=== PATIENT | female | born 1995 ===

== ENCOUNTER 2025-02-07 14:32 | Outpatient (AMB) | payer MEDICAID, SELFPAY ==
[2025-02-07 14:41] VITALS: BP 100/74; PULSE 93; O2SAT 95; BMI 38.9
--- NOTE | 2025-02-07 14:41 | A.OFFVIS_ITS ---
Vital Signs 02/07/25 14:41 Height 5 ft 4 in Weight 226 lb 10.163 oz BMI 38.9 BP 100/74 Blood Pressure Location Lt brachial Position Sitting Pulse 93 Pulse Source Pulse Oximeter Pulse Oximetry (%) 95 Oxygen Delivery Method Room Air Intake Visit Reasons: Obesity Intake Note: New patient externally referred by PCP for Obesity. Gis Developer Required: No Accompanied by: Self / Same As Patient Allergies No Known Allergies Allergy (Verified 02/07/25 14:42) Medication List - Last Reconciled 02/07/25 by Abhay Gutierrez MD No Known Home Meds HPI Comments Details: The patient is a 29-year-old female presenting with weight management concerns and associated endocrine symptoms. 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 She has switched to day shifts and is attempting to regulate her nervous system and stress levels. The patient reports hirsutism, with significant hair growth on her chin and thinning hair on the scalp. She denies any diagnosis of polycystic ovarian syndrome (PCOS) but has experienced ovarian cysts in the past. Her menstrual cycles are regular but significantly heavier than before, and she experiences easy bruising and purplish stretch toure post-. The patient has not been on any thyroid medication and prefers to avoid medication if possible. She has had recent labs done, but they did not include thyroid levels, which were normal in the past. Her A1c was noted to be 6%, indicating borderline prediabetes. The patient has a family history of type 2 diabetes and has monitored her blood glucose levels, which were stable. She reports being very thirsty and acknowledges poor dietary habits, including eating once late at night. She has not tried any weight loss medications or seen a confidential secretary. - No history of thyroid medication use - No history of weight loss medication use [facility] Medical History (Updated 02/07/25 @ 14:46 by Abhay Gutierrez MD) Obesity Surgical History No pertinent past surgical history Family History Mother Type 2 diabetes mellitus Social History Alcohol intake: current Patient Tobacco Use Status: Never used Tobacco Physical Exam Vital Signs: Last Vital Signs Pulse 93 02/07/25 14:41 BP 100/74 02/07/25 14:41 Pulse Ox 95 02/07/25 14:41 Oxygen Delivery Method Room Air 02/07/25 14:41 BMI result Body Mass Index 38.9 Const Other: No cushingoid features. Thyroid gland is normal size weighs about 15 g. There are no thyroid nodules palpated. Absence of acanthosis nigricans. Hair growth present on the chin and in the sideburn region Assessment & Plan Assessment & Plan (1) Obesity: Code(s): E66.9 - Obesity, unspecified Category: Medical Plan: This is a 29-year-old female with a history of obesity. No clear underlying endocrine cause but rule out thyroid disorder. Plan is to check TSH and free T4. Will refer to confidential secretary 1. Hirsutism The patient reports significant hair growth on the chin and thinning hair on the scalp. A workup for polycystic ovarian syndrome PCOS) is planned, including checking testosterone and DHEAS levels , 17 OHP. prolactin Spironolactone was discussed as a potential treatment, but the patient is not currently on any medication. 2. Polycystic Ovarian Syndrome PCOS) The patient has not been formally diagnosed with PCOS but has a history of ova cassi cysts. A comprehensive workup is planned, including checking testosterone, DHEAS, and 17-hydroxyprogesterone levels to rule out other conditions such as congenital adrenal hyperplasia CAH). 3. Insulin Resistance The patient has an A1c of 6%, indicating borderline prediabetes. Lifestyle modifications, including dietary changes and weight management, were discussed. The potential use of metformin was mentioned as a treatment option for insulin resistance associated with PCOS. 4. Hyperprolactinemia The patient reports nipple discharge, and a prolactin level check is planned to rule out hyperprolactinemia. The possibility of a pituitary gland issue was discussed if prolactin levels are elevated. 5. Congenital Adrenal Hyperplasia CAH) Although unlikely, CAH is considered in the differential diagnosis due to the patient's symptoms. A 17-hydroxyprogesterone level will be checked to rule out this condition. 6. Dubberly Syndrome The patient does not exhibit signs of Dubberly syndrome, but it remains a consideration due to the presence of purplish stretch toure and other symptoms. Further evaluation may be warranted if symptoms persist. During the consultation, I discussed the patient's symptoms and potential diagnoses, including hirsutism, PCOS, insulin resistance, hyperprolactinemia, CAH, and Dubberly syndrome. We reviewed the importance of a comprehensive workup, including hormone level checks and lifestyle modifications. I explained the potential use of medications like spironolactone and metformin, emphasizing the need for careful monitoring and follow-up. We also discussed the risks and benefits of these treatments, and I provided information on resources for further education. A follow-up appointment was scheduled to review lab results and discuss further management options. - Schedule and complete fasting lab tests in the morning, including hormone levels. - Consider lifestyle modifications, including dietary changes and stress management. - Follow up with a confidential secretary for dietary guidance. - Return for a follow-up appointment in three to four months to review lab results and discuss further management. . The patient had an opportunity to ask questions regarding treatment plan. The patient expressed understanding and agreement with the above treatment plan. Patient was informed and verbally consented to the use of an ambient scribe for clinic note documentation during this visit. Orders: Orders Free T4 (Free Thyroxine) Today E66.9 - Obesity, unspecified Thyroid Stimulating Hormone Today E66.9 - Obesity, unspecified Prolactin Today E66.9 - Obesity, unspecified DHEA Sulfate Today E66.9 - Obesity, unspecified Testosterone, Free/Total Today E66.9 - Obesity, unspecified 17 Hydroxyprogesterone Today E66.9 - Obesity, unspecified Referrals Nutrition/Dietitian Referral E66.9 - Obesity, unspecified Coding Level of Care Code New Pt Level 4 (08685) Diagnoses Obesity E66.9
--- OUTSIDE RECORDS SUMMARY | 2025-02-07 15:39 | XMS_ITS | Continuity of Care Document ---
Author Organization [facility] Address [address] [place] [address] Insurance Providers Payer Plan Claims Address Claims Phone Policy Number Group Number Relation Employer Guarantor Name Guarantor Guarantor Address Guarantor Phone [facility] [employer] [place] [address] [address] tel: [id number] Problems Condition ICD9 code ICD10 code SNOMED code Start Date End Date S tatus Encounter for screening for other metabolic disorders Z13.228 Results No Results Allergies, adverse reactions, alerts No known allergies and adverse reactions Medications No administered medications reported Vital Signs No vital signs reported Social History No smoking Hx information available
--- OUTSIDE RECORDS SUMMARY | 2025-02-07 15:39 | XMS_ITS | Clinical Summary ---
Author Organization [place] [address] [address] [facility] Address [address] [place], [place] [address] [address] Phone Care Team Providers Care Tele Tech Name Role Phone Franci Anna MD Primary Care Provider Allergies Active Allergy Reactions Criticality Noted Date Comments Adhesive Tape-Silicones Other Low 07/26/2019 Skin irritation Pollen Extracts 02/29/2016 Runny nose , itchy throat , cough Medications EPINEPHrine (EPIPEN) 0.3 mg/0.3 mL injectionIndicat ions:Allergy, sequela Inject 0.3 mL (0.3 mg total) into the thigh 1 (one) time for 1 dose. 1 each 12/09/2024 Active Hospital, Clinic, or Other Facility Administered Medication Ordered Dose Route Frequency Start Date End Date Status lidocaine (PF) (XYLOCAINE-MPF) 1 % injection 0.5 mLIndications:Planta r fascial fibromatosis .5 mL inj Once PRN Procedure 01/24/2025 01/24/2025 Ended lidocaine (PF) (XYLOCAINE-MPF) 1 % injection 0.5 mLIndications:Planta r fascial fibromatosis .5 mL inj Once PRN Procedure 01/24/2025 01/24/2025 Ended triamcinolone acetonide (KENALOG-40) 40 mg/mL injection 20 mgIndications:Planta r fascial fibromatosis 20 mg IAtc Once PRN Procedure 01/24/2025 01/24/2025 Ended triamcinolone acetonide (KENALOG-40) 40 mg/mL injection 20 mgIndications:Planta r fascial fibromatosis 20 mg IAtc Once PRN Procedure 01/24/2025 01/24/2025 Ended Active Problems Problem Noted Date Diagnosed Date Migraines 12/08/2024 Overview (12/08/2024): with aura Obesity (BMI 30.0-34.9) 09/20/2020 Snoring 04/28/2017 Overview (12/08/2024): 04/2017 Home Sleep Study did not reveal sleep apnea. Allergic rhinitis 04/03/2014 Overview (12/08/2024): Immunotherapy; sees ENT Encounters Date Type Department Care Team Description 01/24/2025 8:45 AM EDT Consult Orthopedic Surgery - [facility] [address] [place] [address] [place] [phone] Gus Carbajal, DPM Plantar fascial fibromatosis (Primary Dx); Foot pain, bilateral; Equinus contracture of ankle 12/09/2024 1:45 PM EDT - 12/09/2024 11:59 PM EDT [facility] [phone] Foot pain, bilateral Discharge Disposition: Home or Self Care 12/09/2024 1:00 PM EDT Office Visit Internal Medicine - [address] [phone] Yifan Sheriff NP Morbid obesity (CMS/HCC V24, CMS/HCC V28) (Primary Dx); Abnormal facial hair; Work-related condition; Screening for diabetes mellitus; Family history of diabetes mellitus; Allergy, sequela; Nausea; Skin lesion; Foot pain, bilateral; Screening, anemia, deficiency, iron; Screening for thyroid disorder 11/15/2024 Telephone Internal Medicine - [address] [phone] Franci Anna MD Thyroid Problem from Last 3 Months Immunizations Name Administration Dates Next Due DTaP (Infanrix) 6wks to less than 7yo ,11/04/1995,1994,06/23,1994 [id number] (Pentacel) 2mo to less than 5yo 06/17/1995,1994,1994,04/21 HPV, Quadrivalent 05/02/2019,12/30/2012,06/10/20 12 Hepatitis B (Woevicm-K-Hsfgu , Recombivax HB-Adult) 19yo and older 12/04/2022,11/03/2022,05/20/2017,12/19,1994,1994 Hepatitis B Pediatric (Enger ix B; Recombivax HB) to less than 20 yo 05/02/2019 Influenza Quadravalent, MDCK , 0.5ml, with preservative (Flucelvax) 6mo and older 05/30/2020,05/20/2017 Influenza trivalent, 0.5mL, preservative free (Fluarix; FluLaval; Fluzone) ages 6mo and older (Afluria) 3 years and older 04/24/2024 Influenza trivalent, with pr eservative (Fluzone; Afluria) 6mo and older 04/07/2016,06/10/2012 Influenza, Unspecified 04/24/2024,06/22/2023 MMR, measles mumps and rubel la Live (Priorix; M-M-R II) 12mo and older 02/26/2000,06/17/1995 MMRV, measles mumps rubella and varicella live (Proquad) 4yo to less than 7yo 05/02/2019,02/26/2000,06/17/1995 Meningococcal MCV4P 04/19/2010 OPV 02/27/1999, 5,1994,04/21 PPD Test 10/03/2015 Td Tetanus diptheria (Tdvax) 7yo and older 05/26/2008 Tdap Tetanus diptheria acell ular pertussis (Boostrix; Adacel) 7yo and older 11/04/2023,04/03/2014 Varicella live (Varivax) 12m o and older 04/19/2010,02/27/1999 Surgical History Surgery Date Site/Laterality Comments OTHER SURGICAL HISTORY PROCEDURE: DENIES PREVIOUS SURGERY Medical History Medical History Date Comments Migraines DX:Migraines; CO MMENT: with aura Bleeding in early 04/15/2023 DX:B leeding in early ; COMMENT: 04/14- Single IUP at 6.5 weeks with cardiac activity of 121- warning signs reviewed. Blood type AB pos Family History Medical History Relation Name Comments No Known Problems Brother x 2 Seizures Daughter 1 No Known Problems Daughter 2 No Known Problems Father No Known Problems Maternal Grandfather No Known Problems Maternal Grandmother Diabetes Mother HLD Ovarian cancer Mother's side great aunt No Known Problems Paternal Grandfather unknown No Known Problems Paternal Grandmother unknown Asthma Sister x 2 Other: epilepsy Sister x 2 Diabetes Uncle maternal Breast cancer Neg Hx Uterine cancer Neg Hx Relation Name Status Comments Brother x 2 Alive Daughter 1 Alive Daughter 2 Alive Father Alive Maternal Grandfather Alive Maternal Grandmother Alive Mother Alive Mother's side great aunt Alive Paternal Grandfather unknown Alive Paternal Grandmother unknown Alive Sister x 2 Alive 11/01/99 Uncle maternal Alive Social History Tobacco Use Types Packs/Day Years Used Date Smoking Tobacco: Never Smokeless Tobacco: Never Tobacco Cessation:Counseling Given: Not Answered Alcohol Use Standard Drinks/Week Comments Not Currently 0 (1 standard drink = 0.6 oz pur e alcohol) Comments No Sex and Gender Information Value Date Recorded Sex Assigned at Not on file Legal Sex Female 8:21 PM EST Gender Identity Not on file Sexual Orientation Not on file Obstetrics History Last Filed Vital Signs Vital Sign Reading Time Taken Comments Blood Pressure 116/68 12/09/2024 1:11 PM EDT Pulse 96 12/09/2024 1:11 PM EDT Temperature - - Respiratory Rate - - Oxygen Saturation - - Inhaled Oxygen Concentration - - Weight 91.6 kg (201 lb 15.1 oz) 01/24/2025 8:40 AM EDT Height 165.1 cm (5' 5 ) 01/24/2025 8:40 AM EDT Body Mass Index 33.6 01/24/2025 8:40 AM EDT Plan of Treatment Upcoming Encounters Date Type Department Care Team (Late st Contact Info) Description 02/28/2025 7:30 AM EDT Evaluation [address] [phone] Laila Pickett, SHANIKA 03/09/2025 8:45 AM EDT Office Visit Orthopedic Surgery - [facility] [address] [facility] 250 [place] [phone] Gus Carbajal DPM [address] [address] 03/30/2025 11:30 AM EDT Office Visit Internal Medicine - [facility] [address] [place] [address] Franci Anna MD [address] [place] [phone] 07/11/2025 2:00 PM EST Office Visit Bariatric Surgery - [facility] 175 [facility] [address] [place] [phone] Jordana Carter MD 175 [facility] [address] [place] [address] Health Maintenance Due Date Last Done Comments Depression Screening 07/19/2022 HIV Screening 07/19/2022 Hepatitis C Screening 07/19/2022 Social Influencers of Health Screening 07/19/2022 Cervical Cancer Screening: Pap Smear 01/26/2024 01/25/2021 COVID-19 Vaccine ( season) 2024 09/17/2020, 08/20/2020 Cholesterol Screening (Lipid Panel) 12/10/2028 12/11/2023, 12/11/2023 DTaP,Tdap,and Td Vaccines (9 - Td or Tdap) 11/03/2033 11/04/2023, 04/03/2014, 05/26/2008, Additional history exists HIB Vaccines Completed 06/17/1995, 08/10, 1994, Additional history exists IPV Vaccines Completed 02/27/1999, 03/1995, 1994, Additional history exists Meningococcal ACWY Vaccine Completed 04/19/2010 HPV Vaccines Completed 05/02/2019, 12/09, 06/10/2012 MMR Vaccines Completed 05/02/2019, 02/07, 02/26/2000, Additional history exists Varicella Vaccines Completed 05/02/2019, 0 04/19/2010, 02/26/2000, Additional history exists Hepatitis B Vaccines Completed 12/04/2022, 11/03/2022, 05/02/2019, Additional history exists Influenza Vaccine Completed 04/24/2024, , 06/22/2023, Additional history exists Hepatitis A Vaccines Aged Out No long er eligible based on patient's age to complete this topic Meningococcal B Vaccine Aged Out No l onger eligible based on patient's age to complete this topic Pneumococcal Vaccine: Pediatrics (0 to 5 Years) and At-Risk Patients (6 to 64 Years) Aged Out No longer eligible based on patient's age to complete this topic RSV Immunization Patients Under 20 months Aged Out No longer eligible based on patient's age to complete this topic Procedures Procedure Name Priority Date/Time Associated Diagnosis Comments INJECTION TENDON OR LIGAMENT Routine 01/24/2025 8:45 AM EDT Plantar fascial fibromatosis INJECTION TENDON OR LIGAMENT Routine 01/24/2025 8:45 AM EDT Plantar fascial fibromatosis XR FOOT 3+ VIEWS BILAT Routine 1:49 PM EDT Foot pain, bilateral INTERFERON GAMMA INTERPRETATION Routine 12/09/2024 1:38 PM EDT Work-related condition INTERFERON GAMMA ANTIGEN 2 Routine 12/09/2024 1:38 PM EDT Work-related condition INTERFERON GAMMA ANTIGEN 1 Routine 12/09/2024 1:38 PM EDT Work-related condition INTERFERON GAMMA MITOGEN Routine 12/09/2024 1:38 PM EDT Work-related condition INTERFERON GAMMA NIL Routine 12/09/2024 1:38 PM EDT Work-related condition CBC WITH AUTO DIFFERENTIAL Routine 12/09/2024 1:38 PM EDT Screening, anemia, deficiency, iron COMPREHENSIVE METABOLIC PANEL Routine 12/09/2024 1:38 PM EDT Abnormal facial hair HEMOGLOBIN A1C Routine 12/09/2024 1:38 PM EDT Family history of diabetes mellitus INTERFERON GAMMA FOR TB, QUALITATIVE Routine 12/09/2024 1:38 PM EDT Work-related condition CBC AND DIFFERENTIAL Routine 12/09/2024 1:38 PM EDT Screening, anemia, deficiency, iron THYROID STIMULATING HORMONE Routine 12/09/2024 1:38 PM EDT Screening for thyroid disorder LIPID PANEL Routine 12/11/2023 PAP SMEAR Routine 01/25/2021 from Last 3 Months or Most Recently Relevant to Health Maintenance Results * Injection tendon or ligament (01/24/2025 8:45 AM EDT) Gus Selby DPM - 01/24/2025 8:45 AM EDT Gus Carbajal DPM 01/24/2025 7:35 PM Injection tendon or ligament Indications: pain Details: 25 G needle Medications: 0.5 mL lidocaine (PF) 1 %; 20 mg triamcinolone acetonide 40 mg/mL Informed Consent: Site: Foot ligament tendon Gus Carbajal DPM IN CLINIC/BEDSIDE ORDERAB LES Final Result * Injection tendon or ligament (01/24/2025 8:45 AM EDT) Gus Selby DPM - 01/24/2025 8:45 AM EDT Gus Carbajal DPM 01/24/2025 7:35 PM Injection tendon or ligament Indications: pain Details: 25 G needle Medications: 0.5 mL lidocaine (PF) 1 %; 20 mg triamcinolone acetonide 40 mg/mL Informed Consent: Site: Foot ligament tendon Gus Carbajal DPM IN CLINIC/BEDSIDE ORDERAB LES Final Result * XR Foot 3+ Views bilat (12/09/2024 1:49 PM EDT) Anatomical Region Laterality Modality Lower Extremities, Foot Bilateral [facility] 12/09/2024 5:52 PM EDT Impressions 12/09/2024 5:55 PM EDT No acute fracture or dislocation of the bilateral feet. -------- FINAL REPORT -------- Dictated By: Saman Rodas Dictated Date: 12/09/2024 17:52 ET Assigned Physician: Saman Rodas Reviewed and Electronically Signed By: Saman Rodas Signed Date: 12/09/2024 17:55 ET Workstation ID: [id number] Transcribed By: Self Edit Transcribed Date: 12/09/2024 17:52 ET Narrative 12/09/2024 5:55 PM EDT HISTORY: OTHER TECHNIQUE: 3 views radiographs of the bilateral feet COMPARISON: None FINDINGS: The bilateral feet demonstrates normal mineralization with no fracture or malalignment. The visualized articulations are normal. Small calcaneal spurs are present. No significant soft tissue swelling is identified. Procedure Note Saman Rodas MD - 12/09/2024 HISTORY: OTHER TECHNIQUE: 3 views radiographs of the bilateral feet COMPARISON: None FINDINGS: The bilateral feet demonstrates normal mineralization with no fracture ormalalignment. The visualized articulations are normal. Small calcanealspurs are present. No significant soft tissue swelling is identified. IMPRESSION: No acute fracture or dislocation of the bilateral feet. -------- FINAL REPORT -------- Dictated By: Saman Rodas Dictated Date: 12/09/2024 17:52 ET Assigned Physician: Saman Rodas Reviewed and Electronically Signed By: Saman Rodas Signed Date: 12/09/2024 17:55 ET Workstation ID: [id number] Transcribed By: Self Edit Transcribed Date: 12/09/2024 17:52 ET Yifan Sheriff NP IMG XR PROCEDURES Final Result * Interferon gamma interpretation (12/09/2024 1:38 PM EDT) [facility] Quantiferon Plus Interpretation Negative Negative LAB CHEMISTRY METHOD 12/11/2024 11:00 AM EDT [facility] Blood Venous blood specimen / Unknown Venipuncture / Unknown 12/09/2024 1:38 PM EDT 12/09/2024 1:38 PM EDT us Yifan Sheriff MESSAGE CLERK LAB BLOOD ORDERABLES Final Res ult Performing Organization Address City/[facility]/ZIP Co de Phone Number [facility] [address] [place] [address], [place] [phone] * Interferon gamma antigen 2 (12/09/2024 1:38 PM EDT) Blood Venous blood specimen / Unknown Venipuncture / Unknown 12/09/2024 1:38 PM EDT 12/09/2024 1:38 PM EDT Yifan Sheriff MESSAGE CLERK LAB BLOOD ORDERABLES Final Res ult Performing Organization Address [facility]/ZIP Co de Phone Number [facility] [address] [place] [address], [place] [phone] * Inteferon gamma antigen 1 (12/09/2024 1:38 PM EDT) Blood Venous blood specimen / Unknown Venipuncture / Unknown 12/09/2024 1:38 PM EDT 12/09/2024 1:38 PM EDT Yifan Sheriff MESSAGE CLERK LAB BLOOD ORDERABLES Final Res ult Performing Organization Address [facility] Co de Phone Number [facility] [address] [place] [address], [place] [phone] * Interferon gamma mitogen (12/09/2024 1:38 PM EDT) Blood Venous blood specimen / Unknown Venipuncture / Unknown 12/09/2024 1:38 PM EDT 12/09/2024 1:38 PM EDT Yifan Sheriff MESSAGE CLERK LAB BLOOD ORDERABLES Final Res ult [facility] [address] [place] [address], [place] [phone] * Interferon gamma NIL (12/09/2024 1:38 PM EDT) Blood Venous blood specimen / Unknown Venipuncture / Unknown 12/09/2024 1:38 PM EDT 12/09/2024 1:38 PM EDT Yifan Evansryan MESSAGE CLERK LAB BLOOD ORDERABLES Final Res ult Performing Organization Address [facility]/ZIP Co de Phone Number [facility] [address] [place] [address], [place] [phone] * (ABNORMAL) CBC auto differential (12/09/2024 1:38 PM EDT) [facility] WBC 13.0(H) 4.8 - 10.8 K/[facility] LAB HEMETOLOGY METHOD 12/09/2024 3:56 PM EDT [facility] RBC 4.80 3.80 - 4.80 M/[facility] LAB HEMETOLOGY METHOD 12/09/2024 3:56 PM EDT [facility] Hemoglobin 13.2 11.5 - 16.0 g/dL LAB HEMETOLOGY METHOD 12/09/2024 3:56 PM EDT [facility] Hematocrit 41.4 35.0 - 47.0 % LAB HEMETOLOGY METHOD 12/09/2024 3:56 PM EDT [facility] MCV 87.2 79.0 - 98.0 FL LAB HEMETOLOGY METHOD 12/09/2024 3:56 PM EDT [facility] MCH 27.8 27.0 - 32.0 pcg LAB HEMETOLOGY METHOD 12/09/2024 3:56 PM EDT [facility] MCHC 31.9(L) 32.0 - 37.0 g/dL LAB HEMETOLOGY METHOD 12/09/2024 3:56 PM EDT [facility] RDW 13.7 11.0 - 15.0 % LAB HEMETOLOGY METHOD 12/09[facility]2024 3[facility] Platelets 389 130 - 400 K/mcL LAB HEMETOLOGY METHOD 12/09/2024 3:56 PM [facility] MPV 9.2 7.0 - 11.0 FL LAB HEMETOLOGY METHOD 12/09/2024 3:56 [facility] NRBC 0.0 <1.0 % LAB HEMETOLOGY METHOD 12/09/2024 3:56 PM [facility] NRBC Absolute 0.00 <0.10 K/mcL LAB HEMETOLOGY METHOD 12/09/2024 3:56 PM [facility] Neutrophils Relative 65.2 % LAB HEMETOLOGY METHOD 12/09/2024 3:56 PM [facility] Lymphocytes Relative 21.7 % LAB HEMETOLOGY METHOD 12/09/2024 3:56 PM [facility] Monocytes Relative 10.3 % LAB HEMETOLOGY METHOD 12/09/2024 3:56 PM [facility] Eosinophils Relative 2.1 % LAB HEMETOLOGY METHOD 12/09/2024 3:56 PM [facility] Basophils Relative 0.5 % LAB HEMETOLOGY METHOD 12/09/2024 3:56 PM [facility] Immature Granulocytes Relative 0.2 % LAB HEMETOLOGY METHOD 12/09/2024 3:56 PM [facility] Neutrophils Absolute 8.48(H) 1.50 - 7.00 K/mcL LAB HEMETOLOGY METHOD 12/09/2024 3:56 PM [facility] Lymphocytes Absolute 2.82 1.00 - 5.00 K/mcL LAB HEMETOLOGY METHOD 12/09/2024 3:56 PM EDT [facility] Monocytes Absolute 1.34(H) 0.20 - 1.00 K/mcL LAB HEMETOLOGY METHOD 12/09/2024 3:56 PM EDT [facility] Eosinophils Absolute 0.27 0.00 - 0.50 K/[facility] LAB HEMETOLOGY METHOD 12/09/2024 3:56 PM EDT [facility] Basophils Absolute 0.07 0.00 - 0.20 K/[facility] LAB HEMETOLOGY METHOD 12/09/2024 3:56 PM EDT [facility] Immature Granulocytes Absolute 0.03 0.00 - 0.03 K/[facility] LAB HEMETOLOGY METHOD 12/09/2024 3:56 PM EDT [facility] Blood Venous blood specimen / Unknown Venipuncture / Unknown 12/09/2024 1:38 PM EDT 12/09/2024 1:38 PM EDT us Yifan Sheriff NP LAB BLOOD ORDERABLES Final Res ult [facility] [address] [place] [address], * Thyroid stimulating hormone (12/09/2024 1:38 PM EDT) TSH 0.94 0.40 - 4.00 mcIU/mL LAB CHEMISTRY METHOD 12/09/2024 7:48 PM EDT [facility] Blood Venous blood specimen / Unknown Venipuncture / Unknown 12/09/2024 1:38 PM EDT 12/09/2024 1:38 PM EDT us Yifan Sheriff NP LAB BLOOD ORDERABLES Final Res ult [facility] [address] [place] [address], * Hemoglobin A1c (12/09/2024 1:38 PM EDT) [facility] Hemoglobin A1C 6.0 <6.5 % LAB CHEMISTRY METHOD 12/09/2024 10:20 PM EDT [facility] Mean Bld Glu Estim. 126 mg/dL LAB CHEMISTRY METHOD 12/09/2024 10:20 PM EDT [facility] Blood Venous blood specimen / Unknown Venipuncture / Unknown 12/09/2024 1:38 PM EDT 12/09/2024 1:38 PM EDT Yifan Sheriff NP LAB BLOOD ORDERABLES Final Res ult [facility] [address] [place] [address], * Comprehensive metabolic panel (12/09/2024 1:38 PM EDT) [facility] Sodium 140 133 - 145 mmol/L LAB CHEMISTRY METHOD 12/09/2024 6:48 PM T [facility] Potassium 4.1 3.5 - 5.5 mmol/L LAB CHEMISTRY METHOD 12/09/2024 6:48 PM EDT [facility] Chloride 106 96 - 110 mmol/L LAB CHEMISTRY METHOD 12/09/2024 6:48 PM T [facility] CO2 29 21 - 32 mmol/L LAB CHEMISTRY METHOD 12/09/2024 6:48 PM EDT [facility] Anion Gap 5 3 - 11 LAB CHEMISTRY METHOD 12/09/2024 6:48 PM EDT [facility] Glucose 90 70 - 100 mg/dL LAB CHEMISTRY METHOD 12/09/2024 6:48 PM EDT [facility] BUN 11 5 - 25 mg/dL LAB CHEMISTRY METHOD 12/09/2024 6:48 PM [facility] Creatinine 0.64 0.50 - 1.10 mg/dL LAB CHEMISTRY METHOD 12/09/2024 6:48 PM [facility] eGFR 122 >=60 mL/min/1. 73m2 LAB CHEMISTRY METHOD 12/09/2024 6:48 PM [facility] Comment:Calculation based on the Chronic Kidney Disease Epidemiology Collaboration (CKD-EPI) equation refit without adjustment for race. BUN/Creatinine Ratio 17.2 LAB CHEMISTRY METHOD 12/09/2024 6:48 PM [facility] Calcium 8.6 8.5 - 10.5 mg/dL LAB CHEMISTRY METHOD 12/09/2024 6:48 PM [facility] AST (SGOT) 14 10 - 42 unit/L LAB CHEMISTRY METHOD 12/09/2024 6:48 PM [facility] ALT (SGPT) 26 10 - 60 unit/L LAB CHEMISTRY METHOD 12/09/2024 6:48 PM [facility] Alkaline Phosphatase 114 42 - 121 unit/L LAB CHEMISTRY METHOD 12/09/2024 6:48 PM [facility] Total Protein 7.5 6.0 - 8.0 g/dL LAB CHEMISTRY METHOD 12/09/2024 6:48 PM [facility] Albumin 3.6 3.2 - 5.0 g/dL LAB CHEMISTRY METHOD 12/09/2024 6:48 PM [facility] Total Bilirubin 0.2 0.0 - 1.4 mg/dL LAB CHEMISTRY METHOD 12/09/2024 6:48 PM [facility] Blood Venous blood specimen / Unknown Venipuncture / Unknown 12/09/2024 1:38 PM EDT 12/09/2024 1:38 PM EDT us Yifan Sheriff NP LAB BLOOD ORDERABLES Final Res ult [facility] [address] [place] [address], * Lipid panel (12/11/2023) LDL/HDL Ratio 2 Triglycerides 113 mg/dL Cholesterol 197 mg/dL HDL 81 mg/dL LDL Cholesterol 94 mg/dL Blood Venous blood specimen / Unknown us Historical Provider MD LAB BLOOD ORDERABLES Dania l Result * Pap smear (01/25/2021) 01/25/2021 Narrative HISTORICAL TESTING LAB RESULTING AGENCY - 02/06/2021 1:50 PM EDT [id number] THINPREP PAP, IMAGED: NEGATIVE FOR SQUAMOUS INTRAEPITHELIAL LESION AND MALIGNANCY . REACTIVE CELLULAR CHANGES. FRANCESCA SANCHEZ , CT(ASCP) (CASE SCREENED 01 30 2021) LEXI MONROE M.D. , PATHOLOGIST (CASE ELECTRONICALLY SIGNED 02 04 2021) ADEQUACY: SATISFACTORY ENDOCERVICAL/TRANSFORMATION ZONE COMPONENT PRESENT. SOURCE: THINPREP PAP HPV IF ASCUS, CERVICAL, IMAGED CLINICAL INFORMATION: HPV IF DIAGNOSIS OF ASCUS. Z12.4, PAP HX NEG. Kirstie Jordan CNM LAB CYTOLOGY ORDERABLES Final R esult HISTORICAL TESTING LAB RESULTING AGENCY from Last 3 Months or Most Recently Relevant to Health Maintenance Insurance MEDICAID - [place] Care Teams Tele Tech Relationship Specialty Start Date End Date Franci Anna MD [address] [place] [address] PCP - General Internal Medicine 11/15/24
== END 2025-02-07 15:26 | disposition home or self-care (01) ==
LOC: HO.ENCR 14:32
PROVIDERS: PCP Internal Medicine; Visit Provider Internal Medicine Endocrinology, Diabetes & Metabolism
DX: E66.9 Obesity, unspecified (principal)
CPT/HCPCS: 99204

== ENCOUNTER → 2025-02-07 14:32 | Outpatient (BNVA) | payer MEDICAID, SELFPAY | PROVIDERS: PCP Internal Medicine; Visit Provider Internal Medicine Endocrinology, Diabetes & Metabolism | DX: R73.03 Prediabetes (principal); E66.9 Obesity, unspecified | CPT/HCPCS: 99202 ==

== ENCOUNTER 2025-02-15 11:02 | Outpatient (AMB) | payer MEDICAID, SELFPAY ==
[2025-02-15 11:12] VITALS: BMI 39.8
--- NOTE | 2025-02-15 11:12 | MHC.AMNUTRGE ---
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 Reports her weight prior to her 15 month old child was in the 160s- 170s food frequency fish:likes but not including dairy (cheese mostly, [place] yogurt) vegetables: daily fruits: 3/d beverages: juice/juice , smoothies working towards reaching 85560 steps getting into a routine CPT-Nbbwhtc-Vm.Jeor Equation Height: 5 ft 4 in Weight: 232 lb Resting Metabolic Rate: 1758.68 Calculated Activity Level: Sedentary Calories Needed to Maintain Weight: 2110.42 Diagnosis Nutrition problem #1: food nutri know defi As related to (etiology) #1: diagnosis As evidenced by (sign/symptom) #1: knowledge deficit of diet [facility] Medical History (Updated 02/07/25 @ 14:46 by Abhay Gutierrez MD) Obesity Surgical History No pertinent past surgical history Family History Mother Type 2 diabetes mellitus Social History Alcohol intake: current Patient Tobacco Use Status: Never used Tobacco Assessment & Plan Assessment & Plan (1) Obesity: Code(s): E66.9 - Obesity, unspecified Category: Medical Plan: Wt: 105 Kg ( 03/03 ) Est kcal needs as per MSJ: 2100 (40% carb, 30% protein/fat) Est fluid needs as per 25-30 ml/d: 3200 Est prot per day as per 1 g/kg bw: 100 Recommend fiber intake : 8-10 g per day and gradually increase to 25-28 g per day for women and 35-38 g for men or as tolerated Recommend sodium intake per day : less than 2300 mg Educated patient on: ( R = reviewed V = verbalizes understanding N/R = needs review N/A = not applicable Food sources of carbohydrate, adequate serving sizes and its role in various health conditions: R Differences between complex carbohydrates a simple carbohydrates, role of fiber in diet: R Lean protein sources of foods: R Differences between types of fats and role in diet (mono on saturated fat fatty acids, saturated fatty acids, trans fats): R V N/R Food sources of sodium in salt and healthy modifications for heart health in kidney health: R V R/V Vitamins and minerals: R V N/R Healthy plate method concept: R Physical activity: Benefits a precaution: R V N/R Patient Instructions: Work on having 3 scheduled meals per day 60 g of carb or less per meal , 3 meals/day following healthy plate method snack 0-20 g carb, 2 snacks per day if needed Coding Level of Care Code Nutr Indiv Intake (83307) Diagnoses Obesity E66.9 Time Spent (min) 30
[2025-02-15 11:23] VITALS: BMI 39.8
--- OUTSIDE RECORDS SUMMARY | 2025-02-15 12:14 | XMS_ITS | Clinical Summary ---
Author Organization [place] [address] [facility] Address [address] [place], [place] [address], [place] [address] Phone Care Team Providers Care Customer Associate Name Role Phone Franci Anna MD Primary Care Provider [phone] Allergies Active Allergy Reactions Criticality Noted Date [...] 8:45 AM EDT Consult Orthopedic Surgery - [place] [address] [place] [address] [place] [phone] Gus Carbajal, DPM Plantar fascial fibromatosis (Primary Dx); Foot pain, bilateral; Equinus contracture of ankle 12/09/2024 1:45 PM EDT - 12/09/2024 11:59 PM EDT [facility] [address] [place], [place] [address] [address] Foot pain, bilateral Discharge Disposition: Home or Self Care 12/09/2024 1:00 PM EDT Office Visit Internal Medicine - [address] [phone] Yifan Sheriff NP Morbid obesity (CMS/HCC V24, CMS/HCC V28) (Primary Dx); Abnormal facial hair; Work-related condition; Screening for diabetes mellitus; Family history of diabetes mellitus; Allergy, sequela; Nausea; Skin lesion; Foot pain, bilateral; Screening, anemia, deficiency, iron; Screening for thyroid disorder from Last 3 Months Immunizations Name Administration Dates Next Due DTaP (Infanrix) 6wks to less than 7yo ,11/04/1995,1994,06/23,1994 CYsG-BVM-RLU (Pentacel) 2mo to less than 5yo 06/17/1995,1994,1994,04/21 HPV, Quadrivalent 05/02/2019,12/30/2012,06/10/20 12 Hepatitis B (Numbhsq-I-Jjcle , Recombivax HB-Adult) 19yo and older 12/04/2022,11/03/2022,05/20/2017,12/19,1994,1994 [...] Info) Description 02/28/2025 7:30 AM EDT Evaluation [facility] - [place] [address] [facility] [address] [place] [address] Laila Pickett, SHANIKA 03/09/2025 8:45 AM EDT Office Visit Orthopedic Surgery - [place] [address] [facility] [address] [place] [address] Gus Carbajal, DPM [address] [facility] [address] [place] [address] 03/30/2025 11:30 AM EDT Office Visit Internal Medicine - [facility] [address] [place], [place] [phone] Franci Anna MD [address] [place], [place] 07/11/2025 2:00 PM EST Office Visit Bariatric Surgery - [place] [facility] [address] [place] [phone] Jordana Carter MD 175 [facility] [address] [place] [address] Health Maintenance Due Date Last Done Comments Depression Screening 07/19/2022 HIV Screening 07/19/2022 Hepatitis C Screening 07/19/2022 Social Influencers of Health Screening 07/19/2022 Cervical Cancer Screening: Pap Smear 01/26/2024 01/25/2021 COVID-19 Vaccine ( season) 2024 09/17/2020, 08/20/2020 Influenza Vaccine (#1) 2025 , 04/24/2024, 06/22/2023, Additional history exists Cholesterol Screening (Lipid Panel) 12/10/2028 12/11/2023, 12/11/2023 [...] Completed 12/04/2022, 11/03/2022, 05/02/2019, Additional history exists Hepatitis A Vaccines Aged Out No long er eligible based on patient's age to complete this topic Meningococcal B Vaccine Aged Out No l onger eligible based on patient's age to complete this topic Pneumococcal Vaccine: Pediatrics (0 to 5 Years) and At-Risk Patients (6 to 49 Years) Aged Out No longer eligible based [...] DPM - 01/24/2025 8:45 AM EDT Gus Carbajla DPM 01/24/2025 7:35 PM Injection tendon or [...] Laterality Modality Lower Extremities, Foot Bilateral Radiogra phic Imaging 12/09/2024 5:52 PM EDT Impressions 12/09/2024 5:55 PM EDT No acute fracture or dislocation of the bilateral feet. -------- FINAL REPORT -------- Dictated By: Saman Rodas Dictated Date: 12/09/2024 17:52 ET Assigned Physician: Saman Rodas Reviewed and Electronically Signed By: Saman Rodas Signed Date: 12/09/2024 17:55 ET Workstation ID: [id number] Transcribed By: Self Edit Transcribed Date: 12/09/2024 [...] Signed Date: 12/09/2024 17:55 ET Workstation ID: [id number] Transcribed By: Self Edit Transcribed Date: 12/09/2024 17:52 ET Yifan Sheriff NP IMG XR PROCEDURES Final Result * Interferon gamma interpretation (12/09/2024 1:38 PM EDT) Quantiferon Plus Interpretation Negative Negative LAB CHEMISTRY METHOD 12/11/2024 11:00 AM EDT [facility] Blood Venous blood specimen / Unknown Venipuncture / Unknown 12/09/2024 1:38 PM EDT 12/09/2024 1:38 PM EDT us Yifan Sheriff NP LAB BLOOD ORDERABLES Final Res ult Performing Organization Address [facility]/ZIP Co de Phone Number [facility] [address] [place] [address], [place] [phone] * Interferon gamma antigen 2 (12/09/2024 1:38 PM EDT) Blood Venous blood specimen / Unknown Venipuncture / Unknown 12/09/2024 1:38 PM EDT 12/09/2024 1:38 PM EDT us Yifan Sheriff NP LAB BLOOD ORDERABLES Final Res ult Performing Organization Address [facility] Co de Phone Number [facility] [address] [place] [address], [place] [phone] * Inteferon gamma antigen 1 (12/09/2024 1:38 PM EDT) Blood Venous blood specimen / Unknown Venipuncture / Unknown 12/09/2024 1:38 PM EDT 12/09/2024 1:38 PM EDT us Yifan Sheriff NP LAB BLOOD ORDERABLES Final Res ult Performing Organization Address City/[facility]/ZIP Co de Phone Number [facility] [address] [place] [address], [place] [phone] * Interferon gamma mitogen (12/09/2024 1:38 PM EDT) Blood Venous blood specimen / Unknown Venipuncture / Unknown 12/09/2024 1:38 PM EDT 12/09/2024 1:38 PM EDT us Yifan Sheriff ELEVATOR REPAIR MECHANIC LAB BLOOD ORDERABLES Final Res ult [facility] [address] [place] [address], * Interferon gamma NIL (12/09/2024 1:38 PM EDT) Blood Venous blood specimen / Unknown Venipuncture / Unknown 12/09/2024 1:38 PM EDT 12/09/2024 1:38 PM EDT Yifan Sheriff ELEVATOR REPAIR MECH[employer]IC LAB BLOOD ORDERABLES Final Res ult [facility] [address] [place] [address], * (ABNORMAL) CBC auto differential (12/09/2024 1:38 PM EDT) WBC 13.0(H) 4.8 - 10.8 K/mcL LAB HEMETOLOGY METHOD 12/09/2024 3:56 PM EDT [facility] RBC 4.80 3.80 - 4.80 M/mcL LAB HEMETOLOGY METHOD 12/09/2024 3:56 PM EDT [facility] Hemoglobin 13.2 11.5 - 16.0 g/dL LAB HEMETOLOGY METHOD 12/09/2024 3:56 PM EDT [facility] Hematocrit 41.4 35.0 - 47.0 % LAB HEMETOLOGY METHOD 12/09/2024 3:56 PM EDT [facility] MCV 87.2 79.0 - 98.0 FL LAB HEMETOLOGY METHOD 12/09/2024 3:56 PM EDT [facility] MCH 27.8 27.0 - 32.0 pcg LAB HEMETOLOGY METHOD 12/09/2024 3:56 PM EDT [facility] MCHC 31.9(L) 32.0 - 37.0 g/dL LAB HEMETOLOGY METHOD 12/09/2024 3:56 PM EDT [facility] RDW 13.7 11.0 - 15.0 % LAB HEMETOLOGY METHOD 12/09/2024 3:56 PM EDT [facility] Platelets 389 130 - 400 K/mcL LAB HEMETOLOGY METHOD 12/09/2024 3:56 PM [facility] MPV 9.2 7.0 - 11.0 FL LAB HEMETOLOGY METHOD 12/09[facility]24 3[facility] NRBC 0.0 <1.0 % LAB HEMETOLOGY METHOD 12/09/2024 3:[facility] NRBC Absolute 0.00 <0.10 K/mcL LAB HEMETOLOGY METHOD 12/09/2024 3:56 [facility] Neutrophils Relative 65.2 % LAB HEMETOLOGY METHOD 12/09/2024 3:56 [facility] Lymphocytes Relative 21.7 % LAB HEMETOLOGY METHOD 12/09/2024 3:56 [facility] Monocytes Relative 10.3 % LAB HEMETOLOGY METHOD 12/09/2024 3:56 PM [facility] Eosinophils Relative 2.1 % LAB HEMETOLOGY METHOD 12/09/2024 3:56 PM [facility] Basophils Relative 0.5 % LAB HEMETOLOGY METHOD 12/09/2024 3:56 PM [facility] Immature Granulocytes Relative 0.2 % LAB HEMETOLOGY METHOD 12/09/2024 3:56 [facility] Neutrophils Absolute 8.48(H) 1.50 - 7.00 K/mcL LAB HEMETOLOGY METHOD 12/09/2024 3:56 [facility] Lymphocytes Absolute 2.82 1.00 - 5.00 K/mcL LAB HEMETOLOGY METHOD 12/09/2024 3:56 PM EDT [facility] Monocytes Absolute 1.34(H) 0.20 - 1.00 K/mcL LAB HEMETOLOGY METHOD 12/09/2024 3:56 PM EDT [facility] Eosinophils Absolute 0.27 0.00 - 0.50 K/mcL LAB HEMETOLOGY METHOD 12/09/2024 3:56 PM EDT [facility] Basophils Absolute 0.07 0.00 - 0.20 K/mcL LAB HEMETOLOGY METHOD 12/09/2024 3:56 PM EDT [facility] Immature Granulocytes Absolute 0.03 0.00 - 0.03 K/mcL LAB HEMETOLOGY METHOD 12/09/2024 3:56 PM EDT [facility] Blood Venous blood specimen / Unknown Venipuncture / Unknown 12/09/2024 1:38 PM EDT 12/09/2024 1:38 PM EDT Yifan Sheriff NP LAB BLOOD ORDERABLES Final Res ult Performing Organization Address City/[facility]/ZIP Co de Phone Number [facility] [address] [place] [address], [place] [phone] * Thyroid stimulating hormone (12/09/2024 1:38 PM EDT) TSH 0.94 0.40 - 4.00 mcIU/mL LAB CHEMISTRY METHOD 12/09/2024 7:48 PM EDT [facility] Blood Venous blood specimen / Unknown Venipuncture / Unknown 12/09/2024 1:38 PM EDT 12/09/2024 1:38 PM EDT Yifan Sheriff ELEVATOR REPAIR MECH[employer]IC LAB BLOOD ORDERABLES Final Res ult [facility] [address] [place] [address], [place] [phone] * Hemoglobin A1c (12/09/2024 1:38 PM EDT) Pathologist [facility] Hemoglobin A1C 6.0 <6.5 % LAB CHEMISTRY METHOD 12/09/2024 10:20 PM EDT [facility] Mean Bld Glu Estim. 126 mg/dL LAB CHEMISTRY METHOD 12/09/2024 10:20 PM T [facility] Blood Venous blood specimen / Unknown Venipuncture / Unknown 12/09/2024 1:38 PM EDT 12/09/2024 1:38 PM EDT us Yifan Sheriff NP LAB BLOOD ORDERABLES Final Res ult [facility] [address] [place] [address], * Comprehensive metabolic panel (12/09/2024 1:38 PM EDT) [facility] Sodium 140 133 - 145 mmol/L LAB CHEMISTRY METHOD 12/09/2024 6:48 PM [facility] Potassium 4.1 3.5 - 5.5 mmol/L LAB CHEMISTRY METHOD 12/09/2024 6:48 PM [facility] Chloride 106 96 - 110 mmol/L LAB CHEMISTRY METHOD 12/09/2024 6:48 PM [facility] CO2 29 21 - 32 mmol/L LAB CHEMISTRY METHOD 12/09/2024 6:48 PM T [facility] Anion Gap 5 3 - 11 LAB CHEMISTRY METHOD 12/09/2024 6:48 PM [facility] Glucose 90 70 - 100 mg/dL LAB CHEMISTRY METHOD 12/09/2024 6:48 PM [facility] BUN 11 5 - 25 mg/dL LAB CHEMISTRY METHOD 12/09/2024 6:48 PM [facility] Creatinine 0.64 0.50 - 1.10 mg/dL LAB CHEMISTRY METHOD 12/09/2024 6:48 PM EDT [facility] eGFR 122 >=60 mL/min/1. 73m2 LAB CHEMISTRY METHOD 12/09/2024 6:48 PM T [facility] Comment:Calculation based on the Chronic Kidney Disease Epidemiology Collaboration (CKD-EPI) equation refit without adjustment for race. BUN/Creatinine Ratio 17.2 LAB CHEMISTRY METHOD 12/09/2024 6:48 PM EDT [facility] Calcium 8.6 8.5 - 10.5 mg/dL LAB CHEMISTRY METHOD 12/09/2024 6:48 PM [facility] AST (SGOT) 14 10 - 42 unit/L LAB CHEMISTRY METHOD 12/09/2024 6:48 PM [facility] ALT (SGPT) 26 10 - 60 unit/L LAB CHEMISTRY METHOD 12/09/2024 6:48 PM [facility] Alkaline Phosphatase 114 42 - 121 unit/L LAB CHEMISTRY METHOD 12/09/2024 6:48 PM [facility] Total Protein 7.5 6.0 - 8.0 g/dL LAB CHEMISTRY METHOD 12/09/2024 6:48 PM [facility] Albumin 3.6 3.2 - 5.0 g/dL LAB CHEMISTRY METHOD 12/09/2024 6:48 PM [facility] Total Bilirubin 0.2 0.0 - 1.4 mg/dL LAB CHEMISTRY METHOD 12/09/2024 6:48 PM [facility] Blood Venous blood specimen / Unknown Venipuncture / Unknown 12/09/2024 1:38 PM EDT 12/09/2024 1:38 PM EDT us Yifan Sheriff NP LAB BLOOD ORDERABLES Final Res ult [facility] [address] [place] [address], * Lipid panel (12/11/2023) LDL/HDL Ratio 2 Triglycerides 113 mg/dL Cholesterol 197 mg/dL HDL 81 mg/dL LDL Cholesterol 94 mg/dL Blood Venous blood specimen / Unknown us Historical Provider MD LAB BLOOD ORDERABLES Dania l Result * Pap smear (01/25/2021) 01/25/2021 Narrative HISTORICAL TESTING LAB RESULTING AGENCY - 02/06/2021 1:50 PM EDT [id number] THINPREP PAP, IMAGED: NEGATIVE FOR SQUAMOUS INTRAEPITHELIAL LESION AND MALIGNANCY . REACTIVE CELLULAR CHANGES. FRANCESCA SANCHEZ , KATLYN(ASCP) (CASE SCREENED 01 30 2021) LEXI [place]ROE [...] Relevant to Health Maintenance Insurance MEDICAID - [place] Care Teams Customer Associate Relationship Specialty Start Date End Date Franci Anna MD [address] [facility] [place] [address] PCP - General Internal Medicine 11/15/24
--- OUTSIDE RECORDS SUMMARY | 2025-02-15 12:14 | XMS_ITS | Continuity of Care Document ---
Author Organization [facility] Address [address] [facility] [address] [place] [address] Insurance Providers Payer Plan Claims Address Claims Phone Policy Number Group Number Relation Employer Guarantor Name Guarantor Guarantor Address Guarantor Phone [facility] [employer] [place] [address] [address] tel: [id number] [phone] [id number] Problems Condition ICD9 code ICD10 code SNOMED code Start Date End Date S tatus Encounter for screening for other metabolic disorders Z13.228 Results No Results Allergies, adverse reactions, alerts No known allergies and adverse reactions Medications No administered medications reported Vital Signs No vital signs reported Social History No smoking Hx information available
== END 2025-02-15 11:46 | disposition home or self-care (01) ==
LOC: HO.ENCR 11:03
PROVIDERS: PCP Internal Medicine; Visit Provider Dietitian, Registered
DX: E66.9 Obesity, unspecified (principal)

== ENCOUNTER → 2025-02-15 11:02 | Outpatient (BNVA) | payer MEDICAID, SELFPAY | PROVIDERS: PCP Internal Medicine; Visit Provider Dietitian, Registered | DX: Z71.3 Dietary counseling and surveillance (principal); E66.9 Obesity, unspecified | CPT/HCPCS: 97802 ==

== ENCOUNTER 2025-06-07 07:23 | Outpatient (REF) | payer MEDICAID, SELFPAY ==
--- OUTSIDE RECORDS SUMMARY | 2025-06-07 07:26 | XMS_ITS | Clinical Summary ---
Author Organization [address] Address [address] [place] [phone] Phone Care Team Providers Care Mill Set Up Name Role Phone Franci Anna MD Primary Care Provider [phone] Allergies Active Allergy Reactions Criticality Noted Date [...] 0.5 mLIndications:Planta r fascial fibromatosis .5 mL Once PRN Procedure 05/16/2025 05/16/2025 Ended lidocaine (PF) (XYLOCAINE-MPF) 1 % injection 0.5 mLIndications:Planta r fascial fibromatosis .5 mL Once PRN Procedure 05/16/2025 05/16/2025 Ended triamcinolone acetonide (KENALOG-40) 40 mg/mL injection 20 mgIndications:Planta r fascial fibromatosis 20 mg Once PRN Procedure 05/16/2025 05/16/2025 Ended triamcinolone acetonide (KENALOG-40) 40 mg/mL injection 20 mgIndications:Planta r fascial fibromatosis 20 mg Once PRN Procedure 05/16/2025 05/16/2025 Ended Active Problems Problem Noted Date Diagnosed Date Anxiety 04/18/2025 Prediabetes 04/18/2025 Migraines 12/08/2024 Overview (12/08/2024): with aura Class 2 obesity due to exces s calories without serious comorbidity with body mass index (BMI) of 38.0 to 38.9 in adult 09/20/2020 Snoring 04/28/2017 Overview (12/08/2024): 04/2017 Home Sleep Study did not reveal sleep apnea. Allergic rhinitis 04/03/2014 Overview (12/08/2024): Immunotherapy; sees ENT Encounters Date Type Department Care Team Description 05/16/2025 1:15 PM EDT Office Visit Orthopedic Surgery - [place] [address] [place] [phone] Gus Carbajal, DPM Plantar fascial fibromatosis (Primary Dx); Equinus contracture of ankle 04/18/2025 2:00 PM EDT Office Visit Internal Medicine - [facility] [address] [place] [phone] Sharda Brenner, AMANDA Class 2 obesity due to excess calories without serious comorbidity with body mass index (BMI) of 38.0 to 38.9 in adult (Primary Dx); Allergic rhinitis, unspecified seasonality, unspecified trigger; Snoring; Other migraine without status migrainosus, not intractable; Anxiety; Screen for STD (sexually transmitted disease); Screening for STD (sexually transmitted disease); Prediabetes from Last 3 Months Immunizations Immunization Administration Dates Next Due DTaP (Infanrix) 6wks to less than 7yo ,11/04/1995,1994,06/23,1994 [id number] (Pentacel) 2mo to less than 5yo 06/17/1995,1994,1994,04/21 HPV, Quadrivalent 05/02/2019,12/30/2012,06/10/20 12 Hepatitis B (Wwybtdj-O-Gimlr , Recombivax HB-Adult) 19yo and older 12/04/2022,11/03/2022,05/20/2017,12/19,1994,1994 [...] drink = 0.6 oz pur e alcohol) Housing Instability Answer Date Recorde d Are you worried that in the next 2 months you may not have stable housing? No 04/18/2025 Food Access & Nutrition Answer Date Rec orded Do you have access to a vari ety of food including fruits and vegetables? No 04/18/2025 Health Literacy Answer Date Recorded How often do you need to hav e someone help you when you read instructions, pamphlets, or other written material from your doctor or pharmacy? Never 04/18/2025 Caregiver: How often do you need to have someone help you when you read instructions, pamphlets, or other written material from your doctor or pharmacy? Not on file 04/18/2025 Financial Risk Answer Date Recorded How hard is it for you to pa y for the very basics like food, housing, medical care, and air conditioning / heating? Not very hard 04/18/2025 Transportation Answer Date Recorded Has the lack of transportati on kept you from meetings, work, or from getting things needed for daily living? No Has the lack of transportati on kept you from medical appointments or from getting medications? No 04/18/2025 Social Isolation Answer Date Recorded How often do you feel lonely or isolated from th ose around you? Never 04/18/2025 Food Risk Answer Date Recorded Within the past 12 months we worried whether our food would run out before we got money to buy more. Never true 04/18/2025 Within the past 12 months th e food we bought just didn't last and we didn't have money to get more. Never true 04/18/2025 Dependent Care Answer Date Recorded Do you need help finding or paying for care for your loved ones. For example, child care associate teacher or elderly care for an older adult? No 04/18/2025 Education Answer Date Recorded Do you think completing more education or training, like finishing a GED, going to college, or learning a trade, would be helpful for you? No 04/18/2025 Employment and Income Answer Date Recor ded During the last four weeks, have you been actively looking for work? No 04/18/2025 Living Situation Answer Date Recorded What is your living situation? Unrecognized valu e 04/18/2025 Comments No Sex and Gender Information Value Date Recorded Sex Assigned at Not on file Legal Sex Female 8:21 PM EST Gender Identity Not on file Sexual Orientation Not on file Obstetrics History Last Filed Vital Signs Vital Sign Reading Time Taken Comments Blood Pressure 100/57 04/18/2025 1:51 PM EDT aut o cuff Pulse 80 04/18/2025 1:51 PM EDT auto cuff Temperature 36.9 C (98.5 F) 04/18/2025 1:51 PM EDT Respiratory Rate - - Oxygen Saturation - - Inhaled Oxygen Concentration - - Weight 104 kg (229 lb 6.4 oz) 04/18/2025 1:51 PM EDT Height 165.1 cm (5' 5 ) 04/18/2025 1:51 PM EDT Body Mass Index 38.17 04/18/2025 1:51 PM EDT Plan of Treatment Upcoming Encounters Date Type Department Care Team (Late st Contact Info) Description 06/09/2025 9:30 AM EDT Evaluation Outpatient Rehabilitation - [address] [phone] Ponce Harry, PT 07/11/2025 2:00 PM EST Consult Bariatric Surgery - [address] [place] [phone] Jordana Carter MD [address] [place] [phone] 09/18/2025 9:00 AM EST Office Visit Orthopedic Surgery - [place] [address] [facility] [address] [place] [phone] Gus Carbajal, DPM [address] [place] [phone] 10/09/2025 1:00 PM EST Office Visit Internal Medicine - [address] [phone] Sharda Brenner, AMANDA [address] [place] [phone] 04/19/2026 4:00 PM EDT Office Visit Internal Medicine - [address] [phone] Sharda Brenner, AMANDA [address] [place] [phone] Health Maintenance Due Date Last Done Comments HIV Screening 07/19/2022 Hepatitis C Screening 07/19/2022 Cervical Cancer Screening: Pap Smear 01/26/2024 01/25/2021 COVID-19 Vaccine ( season) 2025 09/17/2020, 08/20/2020 Influenza Vaccine (#1) 2025 , 04/24/2024, 06/22/2023, Additional history exists Social Influencers of Health Screening 04/18/2026 04/18/2025 Cholesterol Screening (Lipid Panel) 12/10/2028 12/11/2023, 12/11/2023 DTaP,Tdap,and Td Vaccines (9 - Td or Tdap) 11/03/2033 11/04/2023, 04/03/2014, 05/26/2008, Additional history exists RSV Immunization Adult Patients (1 - 1-dose 75+ series) 2069 HIB Vaccines Completed 06/17/1995, 08/10, 1994, Additional history exists IPV Vaccines Completed 02/27/1999, 03/1995, 1994, Additional history exists Meningococcal ACWY Vaccine Completed 04/19/2010 HPV Vaccines Completed 05/02/2019, 12/09, 06/10/2012 MMR Vaccines Completed 05/02/2019, 02/07, 02/26/2000, Additional history exists Varicella Vaccines Completed 05/02/2019, 0 04/19/2010, 02/26/2000, Additional history exists Hepatitis B Vaccines Completed 12/04/2022, 11/03/2022, 05/02/2019, Additional history exists Depression Screening Discontinued Hepatitis A Vaccines Aged Out No long [...] Diagnosis Comments INJECTION TENDON OR LIGAMENT Routine 05/16/2025 1:15 PM EDT Plantar fascial fibromatosis INJECTION TENDON OR LIGAMENT Routine 05/16/2025 1:15 PM EDT Plantar fascial fibromatosis LIPID PANEL Routine 12/11/2023 PAP SMEAR Routine 01/25/2021 from Last 3 Months or Most Recently Relevant to Health Maintenance Results * Injection tendon or ligament (05/16/2025 1:15 PM EDT) Narrative Gus Carbajal DPM - 05/16/2025 1:15 PM EDT Gus Carbajal DPM 05/16/2025 6:09 PM Injection tendon or ligament Indications: pain Details: 25 G needle Medications: 0.5 mL lidocaine (PF) 1 %; 20 mg triamcinolone acetonide 40 mg/mL Informed Consent: Site: Foot ligament tendon us Gus Carbajal DPM IN CLINIC/BEDSIDE ORDERAB LES Final Result * Injection tendon or ligament (05/16/2025 1:15 PM EDT) Narrative Gus Carbajal DPM - 05/16/2025 1:15 PM EDT Gus Carbajal DPM 05/16/2025 6:09 PM Injection tendon or ligament Indications: pain Details: 25 G needle Medications: 0.5 mL lidocaine (PF) 1 %; 20 mg triamcinolone acetonide 40 mg/mL Informed Consent: Site: Foot ligament tendon Gus Carbajal DPM IN CLINIC/BEDSIDE ORDERAB LES Final Result * Lipid panel (12/11/2023) LDL/HDL Ratio 2 Triglycerides 113 mg/dL Cholesterol 197 mg/dL HDL 81 mg/dL LDL Cholesterol 94 mg/dL Blood Venous blood specimen / Unknown Historical Provider LAB BLOOD ORDERABLES Dania l Result * Pap smear (01/25/2021) 01/25/2021 Narrative HISTORICAL TESTING LAB RESULTING AGENCY - 02/06/2021 1:50 PM EDT [id number] THINPREP PAP, IMAGED: NEGATIVE FOR SQUAMOUS INTRAEPITHELIAL [...] Maintenance Insurance MEDICAID - [place] Care Teams Mill Set Up Relationship Specialty Start Date End Date Franci Anna MD [address] [facility] [place] [address] PCP - General Internal Medicine 11/15/24
[2025-06-07 12:15] LABS: Free T4 (Free Thyroxine) 0.92 ng/dL (0.71-1.85); Thyroid Stimulating Hormone 2.01 uIU/mL (0.32-4.0)
[2025-06-18 15:23] LABS: Testosterone, Free 3.5 pg/mL (0.1-6.4)
== END 2025-06-07 07:24 | disposition home or self-care (01) ==
LOC: HO.10HDL 07:23
PROVIDERS: Visit Provider Internal Medicine Endocrinology, Diabetes & Metabolism
DX: E66.9 Obesity, unspecified (principal)
CPT/HCPCS: 36415; 82627; 83498; 84146; 84402; 84403; 84439; 84443

== ENCOUNTER 2025-07-19 15:06 | Outpatient (AMB) | payer MEDICAID, SELFPAY ==
--- NOTE | 2025-07-19 15:10 | A.OFFVIS_ITS ---
Vital Signs 07/19/25 15:12 Height 5 ft 4 in Weight 218 lb 4.122 oz BMI 37.5 BP 112/72 Blood Pressure Location Rt brachial Position Sitting Pulse 90 Pulse Source Pulse Oximeter Pulse Oximetry (%) 98 Oxygen Delivery Method Room Air Intake Visit Reasons: Obesity F/U Intake Note: Patient present today for Obesity follow up. Dance Instructor Required: No Accompanied by: Self / Same As Patient Allergies adhesive Adverse Reaction (Verified 07/19/25 15:13) Rash Medication List - Last Reconciled 07/19/25 by Abhay Gutierrez MD No Known Home Meds HPI Comments Details: The patient is a 30-year-old female presenting with weight management concerns and associated endocrine symptoms. 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 She has switched to day shifts and is attempting to regulate her nervous system and stress levels. The patient reports hirsutism, with significant hair growth on her chin and thinning hair on the scalp. She denies any diagnosis of polycystic ovarian syndrome (PCOS) but has experienced ovarian cysts in the past. Her menstrual cycles are regular but significantly heavier than before, and she experiences easy bruising and purplish stretch toure post-. Workup was consistent with polycystic ovarian syndrome [facility] Medical History (Updated 02/07/25 @ 14:46 by Abhay Gutierrez MD) Obesity Surgical History No pertinent past surgical history Family History Mother Type 2 diabetes mellitus Social History Alcohol intake: current Patient Tobacco Use Status: Never used Tobacco Physical Exam Vital Signs: Last Vital Signs Pulse 90 07/19/25 15:12 BP 112/72 07/19/25 15:12 Pulse Ox 98 07/19/25 15:12 Oxygen Delivery Method Room Air 07/19/25 15:12 BMI result Body Mass Index 37.5 Assessment & Plan Assessment & Plan (1) Obesity: Code(s): E66.9 - Obesity, unspecified Category: Medical Plan: This is a 29-year-old female with a history of obesity. No clear underlying endocrine except for presence of polycystic ovarian syndrome Plan is after having a careful talk with the patient, she has decided to go on a G LP 1 agonist. She was prescribed this by her weight loss physician but was not covered. We decided to go with Zepbound 2.5 mg vials from [employer]. I went over side effects of Zepbound including but not limited to nausea, vomiting and rare risk of pancreatitis. I will see the patient back in about 3 months' time. She is not interested in treating the hyperandrogenism aspect of the PCOS until she sees the effect of the Zepbound. Medications: New tirzepatide (weight loss) (Zepbound) [facility] 2517-1690-47 2.5 mg (0.5 mL) subcut QWEEK 2 mL 0RF 4 weeks Coding Level of Care Code Est Pt Level 3 (17630) Diagnoses Obesity E66.9
[2025-07-19 15:12] VITALS: BP 112/72; PULSE 90; O2SAT 98; BMI 37.5
--- OUTSIDE RECORDS SUMMARY | 2025-07-19 23:39 | XMS_ITS | Encounter Summary ---
Author Organization [facility] Address [address] [place] [address] Care Team Providers Care Complaint Evaluation Supervisor Name Role Phone Franci Anna MD Primary Care Provider [phone] Encounter Details Date Type Department Care Team ([facility] Contact Info) Description 06/09/2025 Results Follow-Up Internal Medicine - [facility] [address] [facility] [place] [phone] Aniya Martin [place] Social History Tobacco Use Types Packs/Day Years Used Date Smoking Tobacco: Never Smokeless Tobacco: Never Alcohol Use Standard Drinks/Week Comments Not Currently [...] care for your loved ones. For example, children's aide or elderly care for an older adult? [...] on file Sexual Orientation Not on file documented as of this encounter Plan of Treatment Upcoming Encounters Date Type Department Care Team (Late st Contact Info) Description 08/18/2025 9:30 AM EST Office Visit Obstetrics and Gynecology [address] [phone] Jordan [address] [address] 09/18/2025 9:00 AM EST Office Visit Orthopedic Surgery - [place] [address] [phone] Gus Carbajal, DPM [address] [phone] 10/09/2025 1:00 PM EST Office Visit Internal Medicine - [address] [phone] Sharda Brenner, AMANDA [address] [place] [address] 01/23/2026 2:15 PM EDT Office Visit Bariatric Surgery - [place] [address] [place] [phone] Joradna Carter MD [address] [place] [phone] 04/19/2026 4:00 PM EDT Office Visit Internal Medicine - [address] [phone] Sharda Brenner, AMANDA [address] [place] [address] documented as of this encounter Visit Diagnoses Not on filedocumented in this encounter Care Teams Complaint Evaluation Supervisor Relationship Specialty Start Date End Date Franci Anna MD [address] [place] [address] PCP - General Internal Medicine 11/15/24 documented as of this encounter
--- OUTSIDE RECORDS SUMMARY | 2025-07-19 23:39 | XMS_ITS | Encounter Summary ---
Author Organization [facility] Address [address] [place] [address] Care Team Providers Care Wet Machine Cutter Name Role Phone Franci Anna MD Primary Care Provider [phone] Reason for Visit * Reason Onset Date Comments prior auth 07/13/2025 Prior auth Encounter Details Date Type Department Care Team ([facility] st Contact Info) Description 07/13/2025 Telephone Bariatric Surgery - [address] [place] [address] Jordana Carter MD [address] [place] [phone] Social History Tobacco Use Types Packs/Day Years [...] for your loved ones. For example, children's lunchroom supervisor or elderly care for an older adult? [...] on file documented as of this encounter Progress Notes * Elza Benson - 07/13/2025 2:05 PM EST Patient needs a prior auth for Mounjaro 2.5mg documented in this encounter Plan of Treatment Upcoming Encounters Date Type Department Care Team (Late st Contact Info) Description 08/18/2025 9:30 AM EST Office Visit Obstetrics and Gynecology - [address] [phone] Kirstie Jordan CNM [address] [place] [address] 09/18/2025 9:00 AM EST Office Visit Orthopedic Surgery - [place] [address] [facility] [address] [place] [phone] Gus Carbajal, DPM 175 [facility] 250 [place] [phone] 10/09/2025 1:00 PM EST [facility] [address] [place] [address] Sharda Brenner, AMANDA [address] [place] [address] 01/23/2026 2:15 PM EDT Office Visit Bariatric Surgery - [place] [address] [facility] 120 [place] [phone] Jordana Carter MD [address] [place] [phone] 04/19/2026 4:00 PM EDT [facility] [address] [phone] Sharda Brenner, [employer] INSPECTOR [address] [place] [phone] documented as of this encounter Goals Goal Patient Goal Type Associated Problems Recent Progress Patient-Stated? Author STG's 6 visits General Yes Ponce Harry, PT Note: Pt will report returning to 1 bar class per week w/out any increase in B plantar foot pain. Pt will demonstrate increased L soleus flexibility by 5 degrees. Pt will report a 1 point decrease in B plantar pain during her daily activities. Pt is Independent and compliant with initial HEP. LTG's 12 visits General Yes Ponce Harry, PT Note: Pt will report returning to 2 bar classes per week w/out any increase in B plantar foot pain. Pt will demonstrate increased L soleus flexibility by 10 degrees. Pt will report a 2 point decrease in B plantar pain during her daily activities. Pt will be Independent and compliant with final HEP. documented as of this encounter Visit Diagnoses Not on filedocumented in this encounter Care Teams Wet Machine Cutter Relationship Specialty Start Date End Date Franci Anna MD [address] [place] [phone] PCP - General Internal Medicine 11/15/24 documented as of this encounter
--- OUTSIDE RECORDS SUMMARY | 2025-07-19 23:39 | XMS_ITS | Clinical Summary ---
Author Organization [place] [address] [address] [facility] Address [address] [place], [place] [address]car[place] [address] Phone Care Team Providers Care Waste Water Treatment Plant Operator Name Role Phone Franci Anna MD Primary Care Provider [phone] Allergies Active Allergy Reactions Criticality Noted Date Comments Adhesive Tape-Silicones Other Low 07/26/2019 Skin irritation Pollen Extracts 02/29/2016 Runny nose , itchy throat , cough Medications EPINEPHrine (EPIPEN) 0.3 mg/0.3 mL injectionIndicat ions:Allergy, sequela Inject 0.3 mL (0.3 mg total) into the thigh 1 (one) time for 1 dose. 1 each 12/09/2024 Active tirzepatide (Mounjaro) 2.5 mg/0.5 mL injectionIndicat ions:Class 2 obesity due to excess calories with body mass index (BMI) of 35.0 to 35.9 in adult, unspecified whether serious comorbidity present Inject 0.5 mL (2.5 mg total) under the skin every 7 (seven) days. 2 mL 07/11/2025 Active Active Problems Problem Noted Date Diagnosed Date [...] Encounters Date Type Department Care Team Description 07/18/2025 [facility] [address] [place] [address] Franci Anna MD 07/13/2025 Telephone Bariatric Surgery - [address] [phone] Jordana Carter MD 07/11/2025 2:00 PM EST Consult Bariatric Surgery - [place] [address] [phone] Jordana Carter MD Class 2 obesity due to excess calories with body mass index (BMI) of 35.0 to 35.9 in adult, unspecified whether serious comorbidity present (Primary Dx); Prediabetes 06/30/2025 12:30 PM EST Treatment Outpatient Rehabilitation - [address] [phone] Dottie Ayala, OYSTER WORKER Plantar fascial fibromatosis (Primary Dx); Equinus contracture of ankle 06/22/2025 1:00 PM EST Evaluation Outpatient Rehabilitation - [address] [phone] Ponce Harry, PT Plantar fascial fibromatosis (Primary Dx); Equinus contracture of ankle 06/09/2025 Results Follow-Up Internal Medicine - [facility] [address] [place], [place] [address]nnial [place], [place] [phone] Aniya Martin MA 06/09/2025 [facility]phone [facility] [address] [place] [address] Franci Anna MD 06/09/2025 Results [facility] [address] [place], [place] [address]ial [place], [place] [phone] Yifan Sheriff NP 05/16/2025 1:15 PM EDT Office Visit Orthopedic Surgery - [place] [address] [place] [phone] Gus Carbajal, DPM Plantar fascial fibromatosis (Primary Dx); Equinus contracture of ankle from Last 3 Months Immunizations Immunization Administration Dates Next Due DTaP (Infanrix) 6wks to less than 7yo ,11/04/1995,1994,06/23,1994 OHpI-ETL-TBN (Pentacel) 2mo to less than 5yo 06/17/1995,1994,1994,04/21 HPV, Quadrivalent 05/02/2019,12/30/2012,06/10/20 12 Hepatitis B (Kbowyaf-Q-Ulctk , Recombivax HB-Adult) 19yo and older 12/04/2022,11/03/2022,05/20/2017,12/19,1994,1994 [...] for your loved ones. For example, child & adolescent psychiatrist or elderly care for an older adult? [...] on file Sexual Orientation Not on file Last Filed Vital Signs Vital Sign Reading Time Taken Comments Blood Pressure 115/73 07/11/2025 1:32 PM EST Pulse 86 07/11/2025 1:32 PM EST Temperature 36.6 C (97.8 F) 07/11/2025 1:32 PM EST Respiratory Rate - - Oxygen Saturation - - Inhaled Oxygen Concentration - - Weight 98 kg (216 lb) 07/11/2025 1:32 PM EST Height 165.1 cm (5' 5 ) 07/11/2025 1:32 PM EST Body Mass Index 35.94 07/11/2025 1:32 PM EST Plan of Treatment Upcoming Encounters Date Type Department Care Team (Late st Contact Info) Description 08/18/2025 9:30 AM EST Office Visit Obstetrics and Gynecology - [place] [address] [place] [address] Kirstie Jordan, KELLY [address] [place] [address] 09/18/2025 9:00 AM EST Office Visit Orthopedic Surgery [facility] 250 175 [facility] 250 [place] [phone] Gus Carbajal, DPM [address] [phone] 10/09/2025 1:00 PM EST [facility] [address] [place] [address] Sharda Brenner NP [address] [place] [address] 01/23/2026 2:15 PM EDT Office Visit Bariatric Surgery [facility] 175 [facility] 120 [place] [phone] Jordana Carter MD 230 [place] [address] 04/19/2026 4:00 PM EDT [facility] [phone] Sharda Brenner NP [address] [place] [address] Health Maintenance Due Date Last Done Comments Cervical Cancer Screening: Pap Smear 01/26/2024 01/25/2021 COVID-19 Vaccine ( season) 2025 09/17/2020, 08/20/2020 Influenza Vaccine (#1) 2025 , 04/24/2024, 06/22/2023, Additional history exists Social Influencers of Health Screening 04/18/2026 04/18/2025 Cholesterol Screening (Lipid Panel) 06/07/2030 06/07/2025, 12/11/2023, 12/11/2023 DTaP,Tdap,and Td Vaccines (9 - [...] Completed 12/04/2022, 11/03/2022, 05/02/2019, Additional history exists HIV Screening Completed 06/07/2025 Hepatitis C Screening Completed 06/07/2025 Depression Screening Discontinued Hepatitis A Vaccines Aged [...] on patient's age to complete this topic Goals Goal Patient Goal Type Associated Problems [...] be Independent and compliant with final HEP. Procedures Procedure Name Priority Date/Time Associated Diagnosis Comments TREPONEMA PALLIDUM ANTIBODY WITH REFLEX TO RPR AND PARTICLE AGGLUTINATION Routine 06/07/2025 7:45 AM EDT Screen for STD (sexually transmitted disease) HIV 1, 2 ANTIBODY, P24 ANTIGEN WITH REFLEX TO DIFFERENTIATION Routine 06/07/2025 7:45 AM EDT Screen for STD (sexually transmitted disease) HEPATITIS C ANTIBODY Routine 06/07/2025 7:45 AM EDT Screen for STD (sexually transmitted disease) LIPID PANEL WITH REFLEX TO DIRECT LDL Routine 06/07/2025 7:45 AM EDT Morbid obesity ([facility] V24, [facility] V28) Screening for thyroid disorder Screening, anemia, deficiency, iron Work-related condition Family history of diabetes mellitus Abnormal facial hair CHLAMYDIA TRACHOMATIS AND NEISSERIA GONORRHOEAE PCR Routine 06/07/2025 7:45 AM EDT Screen for STD (sexually transmitted disease) HERPES SIMPLEX VIRUS 1 AND 2 PCR, QUALITATIVE Routine 06/07/2025 7:45 AM EDT Screening for STD (sexually transmitted disease) INJECTION TENDON OR LIGAMENT Routine 05/16/2025 1:15 PM EDT Plantar fascial fibromatosis INJECTION TENDON OR LIGAMENT Routine 05/16/2025 1:15 PM EDT Plantar fascial fibromatosis PAP SMEAR Routine 01/25/2021 from Last 3 Months or Most Recently Relevant to Health Maintenance Results * Hepatitis C antibody (06/07/2025 7:45 AM EDT) [facility] Hepatitis C Antibody Negative Negative LAB CHEMISTRY METHOD 06/07/2025 11:28 AM EDT [facility] Blood Venous blood specimen / Unknown Venipuncture / Unknown 06/07/2025 7:45 AM EDT 06/07/2025 7:45 AM EDT us Sharda Gonzalez NP LAB BLOOD ORDERABLES Final R esult Performing Organization Address [facility]/ZIP Co de Phone Number [facility] [address] [place] [address], [place] [phone] * HIV 1,2 antibody, p24 antigen with reflex to differentiation (06/07/2025 7:45 AM EDT) [facility] HIV Combo AB/AG Negative Negative LAB CHEMISTRY METHOD 06/07/2025 11:28 AM EDT [facility] Blood Venous blood specimen / Unknown Venipuncture / Unknown 06/07/2025 7:45 AM EDT 06/07/2025 7:45 AM EDT Narrative [facility] - 06/07/2025 11:28 AM EDT This assay is a 4th generation assay allowing for earlier detection of HIV infection by detecting the presence of the HIV-1 p24 antigen as well as the traditional antibodies to HIV type 1 (including group O) and type 2. Use of a 4th generation assay is the current CDC recommendation for HIV screening. us Sharda Gonzalez NP LAB BLOOD ORDERABLES Final R esult Performing Organization Address [facility] Co de Phone Number [facility] [address] [place] [address], [place] [phone] * Treponema pallidum antibody with reflex to RPR and particle agglutination (06/07/2025 7:45 AM EDT) T. Pallidum Antibodies Negative Negative LAB CHEMISTRY METHOD 06/07/2025 12:08 PM EDT [facility] Blood Venous blood specimen / Unknown Venipuncture / Unknown 06/07/2025 7:45 AM EDT 06/07/2025 7:45 AM EDT us Sharda Gonzalez [employer] SUPERINTENDENT LAB BLOOD ORDERABLES Final R esult [facility] [address] [place] [address], * Lipid panel with reflex to direct LDL (06/07/2025 7:45 AM EDT) Pathologist [facility] Cholesterol 164 0 - 200 mg/dL LAB CHEMISTRY [facility]/07[facility] Triglycerides 107 0 - 150 mg/dL LAB CHEMISTRY METHOD 06/07/2025 2:28 PM [facility] HDL 63 >=40 mg/dL LAB CHEMISTRY METHOD 06/07/2025 2:28 PM [facility] LDL Calculated 80 0 - 100 mg/dL LAB CHEMISTRY METHOD 06/07/2025 2:28 PM [facility] Comment:Estimated LDL Calcul ated using equation: Total cholesterol - HDL cholesterol - (Triglycerides/5) VLDL Cholesterol Gregorio 21.4 mg/dL LAB CHEMISTRY METHOD 06/07/2025 2:28 PM [facility] Non HDL Chol. (LDL+VLDL) 101 <145 mg/dL LAB CHEMISTRY METHOD 06/07/2025 2:28 PM [facility] Chol/HDL Ratio 2.6 0.0 - 4.4 LAB CHEMISTRY METHOD 06/07/2025 2:28 PM [facility] Blood Venous blood specimen / Unknown Venipuncture / Unknown 06/07/2025 7:45 AM EDT 06/07/2025 7:45 AM EDT Yifan Sheriff NP LAB BLOOD ORDERABLES Final Res ult [facility] [address] [place] [address], * Herpes simplex virus 1 and 2 molecular study, qualitative (06/07/2025 7:45 AM EDT) Specimen Source Blood - EDTA 06/09/2025 11:03 AM EDT [facility] Herpes simplex Virus I Not detected Not detected 06/09/2025 11:03 AM EDT [facility] Herpes simplex Virus II Not detected Not detected 06/09/2025 11:03 AM EDT [facility] Comment: This test utilizes a real-time polymerase chain reaction procedure to amplify and detect portions of the herpes simplex virus glycoprotein G genes. The analytical sensitivity of this assay is 50 copies/mL. A Not detected result does not rule out infection. This test uses commercial reagents that have not been approved or cleared by the FDA. The FDA has determined that such clearance or approval is not necessary. The performance characteristics of this procedure were determined by [facility]. This test is performed pursuant to a license agreement with [employer] Test performed at [facility], [address] , [place], [place] [id number] Natasha Maddox MD, PhD - Online Journalist Blood Venous blood specimen / Unknown Venipuncture / Unknown 06/07/2025 7:45 AM EDT 06/07/2025 7:45 AM EDT Sharda Gonzalez NP LAB MICROBIOLOGY - GENERAL O RDERABLES Final Result [facility] [address] [place] [address] * Chlamydia trachomatis and Neisseria gonorrhoeae molecular study (06/07/2025 7:45 AM EDT) Neisseria gonorrhoeae PCR Negative Negative LAB MOLECULAR DIAGNOSTICS METHOD 06/07/2025 3:32 PM EDT [facility] Chlamydia trachomatis PCR Negative Negative LAB MOLECULAR DIAGNOSTICS METHOD 06/07/2025 3:32 PM EDT [facility] Urine First stream urine specimen / Unknown Non-blood Collection / Unknown 06/07/2025 7:45 AM EDT 06/07/2025 7:45 AM EDT Sharda Gonzalez NP LAB MICROBIOLOGY - GENERAL O RDERABLES Final Result [facility] [address] [place] [address], * Injection tendon or ligament (05/16/2025 1:15 PM EDT) Gus Selby DPM - 05/16/2025 1:15 PM EDT Gus Carbajal DPM 05/16/2025 6:09 PM Injection tendon or ligament Indications: pain Details: 25 G needle Medications: 0.5 mL lidocaine (PF) 1 %; 20 mg triamcinolone acetonide 40 mg/mL Informed Consent: Site: Foot ligament tendon Gus Carbajal DPM IN CLINIC/BEDSIDE ORDERAB LES Final Result * Injection tendon or ligament (05/16/2025 1:15 PM EDT) Gus Selby DPM - 05/16/2025 1:15 PM EDT Gus Carbajal DPM 05/16/2025 6:09 PM Injection tendon or ligament Indications: pain Details: 25 G needle Medications: 0.5 mL lidocaine (PF) 1 %; 20 mg triamcinolone acetonide 40 mg/mL Informed Consent: Site: Foot ligament tendon Gus Carbajal DPM IN CLINIC/BEDSIDE ORDERAB LES Final Result * Pap smear (01/25/2021) 01/25/2021 Narrative HISTORICAL TESTING LAB RESULTING AGENCY - 02/06/2021 1:50 PM EDT [id number] THINPREP PAP, IMAGED: NEGATIVE FOR SQUAMOUS INTRAEPITHELIAL LESION AND MALIGNANCY . REACTIVE CELLULAR CHANGES. FRANCESCA SANCHEZ , KATLYN(ASCP) (CASE SCREENED 01 30 2021) LEXI MONROE M.D. , PATHOLOGIST (CASE ELECTRONICALLY SIGNED 02 04 2021) ADEQUACY: SATISFACTORY ENDOCERVICAL/TRANSFORMATION ZONE COMPONENT PRESENT. SOURCE: THINPREP PAP HPV IF ASCUS, CERVICAL, IMAGED CLINICAL INFORMATION: HPV IF DIAGNOSIS OF ASCUS. Z12.4, PAP HX NEG. Kirstie Jordan [facility] LAB CYTOLOGY ORDERABLES Final R esult HISTORICAL TESTING LAB RESULTING AGENCY from Last 3 Months or Most Recently Relevant to Health Maintenance Care Teams Waste Water Treatment Plant Operator Relationship Specialty Start Date End Date Franci Anna MD [address] [place] [address] PCP - General Internal Medicine 11/15/24
--- OUTSIDE RECORDS SUMMARY | 2025-07-19 23:39 | XMS_ITS | Encounter Summary ---
Author Organization [facility] Address [address] [place] [address] Care Team Providers Care Network Mgr Name Role Phone Franci Anna MD Primary Care Provider [phone] Encounter Details Date Type Department Care Team ([facility] Contact Info) Description 06/09/2025 Results Follow-Up Internal Medicine - [address] [phone] Yifan Sheriff NP [address] [place] [address] Social History Tobacco Use Types Packs/Day Years [...] for your loved ones. For example, child and family therapist or elderly care for an older adult? [...] EST Office Visit Obstetrics and Gynecology - [address] [phone] Kirstie Jordan CNM 444 [place] [address] 09/18/2025 9:00 AM EST Office Visit Orthopedic Surgery - [place] [address] [phone] Gus Carbajal, DPM [address] [phone] 10/09/2025 1:00 PM EST Office Visit Internal Medicine - [address] [phone] Sharda Brenner NP [address] [place] [address] 01/23/2026 2:15 PM EDT Office Visit Bariatric Surgery - [place] [address] [facility] [address] [place] [phone] Jordana Carter MD [address] [place] [phone] 04/19/2026 4:00 PM EDT [facility] [address] [place] [address] Sharda Brenner NP [address] [place] [address] documented as of this encounter Visit Diagnoses Not on filedocumented in this encounter Care Teams Network Mgr Relationship Specialty Start Date End Date Franci Anna MD [address] [place] [address] PCP - General Internal Medicine 11/15/24 documented as of this encounter
--- OUTSIDE RECORDS SUMMARY | 2025-07-19 23:39 | XMS_ITS | Encounter Summary ---
Author Organization [facility] Address [address] [place] [address] Care Team Providers Care Tangled Yarn Spool Straightener Name Role Phone Franci Anna MD Primary Care Provider [phone] Reason for Referral * Consultation (Routine) - Pending Review Specialty Diagnoses / Procedures Referred By Elham blount Referred To Contact Endocrinology Diagnoses Obesity, unspecified class, unspecified obesity type, unspecified whether serious comorbidity present Sharda Brenner NP [address] [place] [address] Phone: tel: fax: Referral ID Status Reason Start Date Expiration Date Visits Requested Visits Authorized [id number] Pending Review Specialty Services Required 07/19/2026 1 1 Reason for Visit * Reason Onset Date Comments Referral 07/18/2025 Encounter Details Date Type Department Care Team ([facility] Contact Info) Description 07/18/2025 [facility] [address] [place] [address] Franci Anna MD [address] [place] [address] Social History Tobacco Use Types Packs/Day Years [...] for your loved ones. For example, children's nursery assistant or elderly care for an older adult? [...] as of this encounter Progress Notes * Sharda Gonzalez NP - 07/19/2025 12:40 PM EST Signed * Halima Nugent MA - 07/18/2025 3:16 PM EST Referral pending * Mendy Ashton - 07/18/2025 3:02 PM EST Referral Request: What insurance does the patient have today? [facility] Referrals cannot be processed if the insurance is not accurate. If the insurance listed above in red is NO BILLING INFORMATION FOUND FOR THIS ENCOUTNER The patients correct insurance must be obtained and registered in [facility] or their referral can not be processed. Who is calling to request this referral? Faxed to office If the caller is not the patient, what is their name? Ask the patient WHO referred them to this specialty: FIRST and LAST NAME of SPECIALIST PATIENT is seeing: Abhay Gutierrez MD What specialty is this? endo DIAGNOSIS Patient is being seen for (Not a body part or a procedure): e66.9 Have you seen this SPECIALIST for this PROBLEM/DX before? If YES, when? Have you checked REVIEW or the APPT DESK to see if this referral has already been done or has visits left? Is this visit: Address of Specialist: [address] [place] [address] Dr Prachi [place] [address] Phone # of Specialist: [phone] Fax #: (if applicable): [phone] Does patient have an appointment scheduled?: yes Date of appointment- (including a retro-request): 07-19-25 for 6 visits Is this appointment related to: documented in this encounter Plan of Treatment Upcoming Encounters Date Type Department Care Team (Late st Contact Info) Description 08/18/2025 9:30 AM EST Office Visit Obstetrics and Gynecology [address] [phone] Kirstie Jordan CNM [address] [place] [address] 09/18/2025 9:00 AM EST Office Visit Orthopedic Surgery - [place] 250 175 [facility] 250 [place] [phone] Gus Carbajal, DPM [address] [phone] 10/09/2025 1:00 PM EST Office Visit Internal Medicine - [address] [phone] Sharda Brenner NP [address] [place] [address] 01/23/2026 2:15 PM EDT Office Visit Bariatric Surgery [facility] [address] [phone] Jordana Carter MD 230 [place] [phone] 04/19/2026 4:00 PM EDT Office Visit Internal Medicine - [address] [phone] Sharda Brenner NP [address] [place] [phone] Scheduled Referrals Name Type Priority Associated Diagnoses Order Schedule Ambulatory referral to Endocrinology Outpatient Referral Routine Obesity, unspecified class, unspecified obesity type, unspecified whether serious comorbidity present 1 Occurrences starting 07/19/2025 until 07/18/2026 documented as of this encounter Goals Goal [...] documented as of this encounter Visit Diagnoses Diagnosis Obesity, unspecified class, unspecified obesity type, unspecified whether serious comorbidity present- Primary documented in this encounter Care Teams Tangled Yarn Spool Straightener Relationship Specialty Start Date End Date Franci Anna MD [address] [facility] [address] PCP - General Internal Medicine 11/15/24 documented as of this encounter
== END 2025-07-19 15:40 | disposition home or self-care (01) ==
LOC: HO.ENCR 15:06
PROVIDERS: PCP Internal Medicine; Visit Provider Internal Medicine Endocrinology, Diabetes & Metabolism
DX: E66.9 Obesity, unspecified (principal)
CPT/HCPCS: 99213

== ENCOUNTER → 2025-07-19 15:06 | Outpatient (BNVA) | payer MEDICAID, SELFPAY | PROVIDERS: PCP Internal Medicine; Visit Provider Internal Medicine Endocrinology, Diabetes & Metabolism | DX: E66.9 Obesity, unspecified (principal); E28.2 Polycystic ovarian syndrome; Z68.37 Body mass index [BMI] 37.0-37.9, adult | CPT/HCPCS: 99212 ==